=== PATIENT | male | born 1970 | race Caucasian/White ===

== ENCOUNTER 2019-08-22 14:22 | Outpatient (CLI) | payer BC, SELFPAY ==
--- NOTE | ~2019-08-22 | CT_ITS ---
EXAMINATION: CT chest w con EXAM DATE: 08/22/2019 14:53 INDICATION: Cough. TECHNIQUE: Spiral CT of the chest without contrast. Axial, coronal and sagittal images were reviewe d. Coronal maximum intensity pixel images of chest reviewed. The dose-length product (DLP) for this examination was 491.54 mGy-cm. The exposure was tailored according to patient size (auto mA exposur e control), and iterative reconstruction (ASIR) was used as additional dose reduction technique. The re is no prior study for comparison. FINDINGS: The lungs are clear. There are no pleural or pericardial effusions. Tracheobronchial t ree is patent. There is no mediastinal, hilar or axillary lymphadenopathy. There is no pneumothor ax. Heart normal in size. No evidence of coronary arterial calcification. Small paraesophageal fa t-containing hernia. There are cholecystectomy clips. Upper abdomen is unremarkable. There is mild thoracic spondylosis without osteoblastic or osteolytic lesions identified. IMPRESSION: 1. Small paraesophageal fat-containing hiatal hernia. 2. Otherwise unremarkable CT chest examination. Reviewed, dictated and finalized at location A. 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
== END 2019-08-22 14:23 | disposition home or self-care (01) ==
LOC: ANHIMG 14:25
PROVIDERS: PCP Family Medicine; Visit Provider Nurse Practitioner Family
DX: R05 Cough (principal); K44.9 Diaphragmatic hernia without obstruction or gangrene
CPT/HCPCS: 71260; Q9967

== ENCOUNTER 2021-06-27 10:55 | Emergency (ER) | payer BC, SELFPAY ==
--- NOTE | ~2021-06-27 | XR_ITS ---
EXAMINATION: XR chest 2V DATE: 06/27/2021 12:08 INDICATION: Cough and fever TECHNIQUE: Frontal and lateral views of the chest are obtained COMPARISON: 07/23/2019 FINDINGS: There are airspace opacities of the lower lung zones. There is no pleural effusion or pneum othorax. The cardiomediastinal silhouette is normal. There is mild thoracic spondylosis. Surgical cli ps in the right upper quadrant are likely from prior cholecystectomy. IMPRESSION: 1. Airspace opacities of the lung bases, consistent with atelectasis versus pneumonia. Reviewed, dictated and finalized at location A. T ORDER SELECTOR IMPRESSION: 1. Airspace opacities of the lung bases, consistent with atelectasis versus pne umonia.
[2021-06-27 11:20] VITALS: BP 150/109; PULSE 122; RESP 24; TEMP 34.9; O2SAT 93
--- NOTE | 2021-06-27 11:49 | ED.URI ---
HPI - URI/Sore Throat General Chief Complaint: Upper Respiratory Infection Stated Complaint: sob,cough Time Seen by Provider: 06/27/21 11:45 Source: patient and RN notes reviewed Mode of arrival: ambulatory Limitations: no limitations History of Present Illness HPI Narrative: Leander is a 50-year-old male patient who ambulated into the [facility] today. Patient states he has a productive cough, feeling sweaty, and short of breath since , 06/24/2021. Patient has a history of childhood asthma and pneumonia in 2019. Patient denies using albuterol currently. Patient states he has not been around anyone who is sick. Related Data Allergies Allergy/AdvReac Type Severity Reaction Status Date / Time No Known Allergies Allergy Verified 06/27/21 11:29 Review of Systems Review of Systems: CONSTITUTIONAL: Denies body aches, fever, chills, or sweats. EYES: Denies visual changes, redness, or discharge. ENT: Denies rhinorrhea,+ congestion,+ sore throat, or otalgia. CARDIOVASCULAR: Denies chest pain, palpitations, or edema. RESPIRATORY: + cough or dyspnea. GASTROINTESTINAL: Denies abdominal pain, nausea, vomiting, or diarrhea. GENITOURINARY: Denies dysuria or hematuria. SKIN: Denies rash, itching, or wounds. MUSCULOSKELETAL: Denies back pain, joint pain, or myalgia. NEUROLOGIC: Denies headache, numbness, tingling, or weakness. PSYCH: Denies depression or anxiety. All systems reviewed & are unremarkable except as noted in HPI and below PMFSH Family History Family History Grandparent Hypertension Carcinoma of colon Mother Family history of diabetes mellitus in first degree relative Sibling Family history of malignant neoplasm of ovary Social History Social History Smoking status: Never smoker Alcohol intake: current Comments At time of signature, I have reviewed and agree with nursing past medical, surgical, social and family history unless otherwise noted. Please see nursing chart for further information. There is no relevant family history pertinent to the presenting complaint Exam Narrative: GENERAL: Well-appearing, well-nourished, and in no acute distress. HEAD: Normocephalic, atraumatic. EYES: EOMI. No redness or drainage. Conjunctivae normal. ENT: Mucous membranes pink and moist. Nares clear. No rhinorrhea. TMs normal bilaterally. Posterior pharynx erythemic without exudate and minimal drainage Uvula midline. NECK: Normal AROM. Supple. No lymphadenopathy. CHEST: No respiratory distress. Crackles to the right base; harsh hacking cough noted . ABDOMEN: Soft, nontender, nondistended, normal active bowel sounds. MUSCULOSKELETAL: No bony tenderness. EXTREMITIES: Normal range of motion. No edema. SKIN: Warm, moist, no rash. Capillary refill normal. Normal skin turgor. NEURO: No focal deficits. Alert and oriented x3. Gait steady. PSYCH: Normal affect. No signs of depression or anxiety. Course Vital Signs Vital signs: Vital Signs Temperature 34.9 C L 06/27/21 11:20 Pulse Rate 122 H 06/27/21 11:20 Respiratory Rate 24 H 06/27/21 11:20 Blood Pressure 150/109 H 06/27/21 11:20 Pulse Oximetry 93 06/27/21 11:20 Temperature 34.9 C L 06/27/21 11:20 Pulse Rate 122 H 06/27/21 11:20 Respiratory Rate 24 H 06/27/21 11:20 Blood Pressure 150/109 H 06/27/21 11:20 Pulse Oximetry 93 06/27/21 11:20 Reviewed. Pt has been instructed to follow up with his PCP regarding his elevated blood pressure today. MDM - URI/Sore Throat MDM Narrative Medical decision making narrative: Influenza a and B are negative. COVID-19 test is negative Differential Diagnosis Differential diagnosis: Likely upper respiratory infection, sinusitis, bronchitis and influenza Medical Records Attestation: I reviewed the patient's medical records. Lab Data Labs: Influenza A Screen
[2021-06-27 12:45] VITALS: PULSE 104
== END 2021-06-27 12:52 | disposition home or self-care (01) ==
PROVIDERS: Emergency Provider Nurse Practitioner Family; PCP Family Medicine
DX: J18.9 Pneumonia, unspecified organism (principal); Z20.822 Contact with and (suspected) exposure to COVID-19; Z98.52 Vasectomy status
CPT/HCPCS: 71046; 87426; 87804; 99213; C9803; G0463

== ENCOUNTER → 2021-07-12 11:16 | Outpatient (CLI) | payer BC, SELFPAY ==
--- NOTE | ~2021-07-12 | XR_ITS ---
EXAMINATION: XR chest 2V DATE: 07/12/2021 11:44 INDICATION: Pneumonia, unspecified organism. TECHNIQUE: Frontal and lateral views of the chest were obtained. COMPARISON: Chest 2 views 06/27/2021, chest CT 08/22/2019 FINDINGS: The chest demonstrates clear lungs without pneumonia, pleural effusion, or pneumothorax. Th e heart size is normal. There are changes of anterior fusion procedure in cervical spine. IMPRESSION: 1. No acute cardiopulmonary disease. Reviewed, dictated and finalized at location A. 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
== END ==
PROVIDERS: PCP Family Medicine; Visit Provider Nurse Practitioner Family
DX: J18.9 Pneumonia, unspecified organism (principal)
CPT/HCPCS: 71046

== ENCOUNTER → 2022-12-02 09:17 | Outpatient (CLI) | payer BC, SELFPAY ==
--- NOTE | ~2022-12-02 | US_ITS ---
US abdomen complete EXAMINATION: US Abdomen Complete INDICATION: Right mid abdomen pain PROCEDURE: Realtime High Resolution abdomen ultrasound. COMPARISON: No prior studies for comparison FINDINGS: Gallbladder is surgically absent. Common bile duct measures 4.5 mm. Liver echotexture is increased, consistent with fatty infiltration.. Pancreas within normal limits. Pancreatic tail is obscured by bowel gas. Spleen is unremarkeable. Renal echotexture is within norm al limits bilaterally without hydronephrosis, contour deforming mass or renal stone. Right kidney lucie sures 11.5 cm. Left kidney measures 11.7 cm. Visualized aspects of the aorta and IVC are within normal limits. Portal vein is patent. No sonograph ic Almodovar's sign indicated by the technologist. IMPRESSION: 1: Hepatic steatosis. Reviewed, dictated and finalized at location B. IMPRESSION: 1: Hepatic steatosis.
== END ==
PROVIDERS: PCP Family Medicine; Visit Provider Physician Assistant Medical
DX: R10.31 Right lower quadrant pain (principal); K76.0 Fatty (change of) liver, not elsewhere classified
CPT/HCPCS: 76700

== ENCOUNTER 2023-02-01 00:46 | Day surgery (SDC) | payer BC, SELFPAY ==
[2023-01-24 13:44] VITALS: BMI 35.1
[2023-02-01 06:16] VITALS: BP 122/87; PULSE 110; RESP 18; TEMP 36.3; O2SAT 96
[2023-02-01] MEDS: LACTATED RINGERS 1,000 ML 150 ML IV CONT (06:26)
--- NOTE | 2023-02-01 07:23 | P.PNAN_ITS ---
Anes - Initial Pre Proc Eval Procedure: Operation Date: 02/01/23 07:30 Proposed Procedures p Colonoscopy - Humza Almazan MD Date/Time: 02/01/23 07:23 Surgeon: Humza Almazan MD Pre Op Diagnosis: family hx colon ca Patient Data Age: 52 Gender: M Height: 1.75 m Weight: 105.4 kg Last Vital Signs Temp 97.4 F L 02/01/23 06:16 Pulse 110 H 02/01/23 06:16 Resp 18 02/01/23 06:16 BP 122/87 02/01/23 06:16 Pulse Ox 96 02/01/23 06:16 O2 Del Method Room Air 02/01/23 06:16 Allergies Allergy/AdvReac Type Severity Reaction Status Date / Time No Known Allergies Allergy Verified 02/01/23 06:15 Home Medications Medication Instructions Recorded Confirmed Type testosterone (AndroGel) 1 pump topical DAILY #75 grams 12/02/22 02/01/23 Rx cetirizine 10 mg tablet (Zyrtec) 10 mg PO DAILY 01/24/23 02/01/23 History Patient hx anesthesia problems: none Family hx anesthesia problems: none Results Review: All pre-operative results and documents have been reviewed as part of the pre- operative evaluation. [facility] Past Medical History Medical History Asthma BMI 35.0-35.9,adult BMI 36.0-36.9,adult Family History Family History Grandparent Hypertension Carcinoma of colon Mother Family history of diabetes mellitus in first degree relative Sibling Family history of malignant neoplasm of ovary Social History Social History Smoking status: Never smoker Alcohol intake: current Substance use type: does not use Living arrangements: with family Spiritual care concerns: No Anes - Eval Final PreProcedure Day of Procedure 02/01/23 07:23 Patient weight: obese Heart: regular rate and rhythm Lungs: clear to auscultation Airway: Mallampati scale class II Neurological: alert and oriented Last oral intake: >/= 8 hours ASA classification: II Emergent: no Anesthetic plan: proceed Anesthesia type and monitoring: general GIVS and standard monitoring Results Review: All pre-operative results and documents have been reviewed as part of the pre- operative evaluation. Informed Consent: The patient's anesthetic plan and its attendant risks and benefits were dis cussed with the patient/family/POA. Questions were solicited and answers provided to the satisfaction of the patient/family/POA.
--- NOTE | 2023-02-01 07:31 | PM.HPGS ---
History of Present Illness History of Present Illness Consent: Risks, benefits, and alternatives have been discussed and questions answered. Patient agrees to proceed with procedure. Chief complaint: family hx colon ca Narrative: Leander Ortega is a 52 year old male here for first screening colonoscopy Review of Systems Constitutional: Constitutional: Denies headache(s) and Denies weakness Eyes: Eyes: Denies blurry vision ENT: Reports Normal hearing present, Denies headache(s) and Denies neck pain Cardiovascular: Cardiovascular: Denies chest pain and Denies dyspnea Respiratory: Respiratory: Denies dyspnea Gastrointestinal: Gastrointestinal: Reports no additional gastrointestinal complaints Genitourinary: Genitourinary: Denies dysuria Musculoskeletal: Musculoskeletal: Denies neck pain Integumentary/Breasts: Skin/Breast: Denies dry skin Neurologic: Reports Normal hearing present, Denies headache(s) and Denies weakness Psychiatric: Psychiatric: Denies anxiety Endocrine: Endocrine: Denies change in body appearance Hematologic/Lymphatic: Hematologic/Lymphatic: Denies easy bleeding Allergic/Immunologic: Allergic/Immunologic: Denies urticaria PMFSH Past Medical History Medical History Asthma BMI 35.0-35.9,adult BMI 36.0-36.9,adult Family History Family History Grandparent Hypertension Carcinoma of colon Mother Family history of diabetes mellitus in first degree relative Sibling Family history of malignant neoplasm of ovary Social History Social History Smoking status: Never smoker Alcohol intake: current Substance use type: does not use Living arrangements: with family Spiritual care concerns: No Meds Home Medications and Allergies Home Medications Medication Instructions Recorded Confirmed Type testosterone (AndroGel) 1 pump topical DAILY #75 grams 12/02/22 02/01/23 Rx cetirizine 10 mg tablet (Zyrtec) 10 mg PO DAILY 01/24/23 02/01/23 History Allergies Allergy/AdvReac Type Severity Reaction Status Date / Time No Known Allergies Allergy Verified 02/01/23 06:15 Vital Signs Vital Signs - 24 hr 02/01/23 06:16 Temperature 97.4 F L Pulse Rate 110 H Respiratory Rate 18 Blood Pressure 122/87 Pulse Oximetry 96 Oxygen Delivery Room Air Exam Const: General: comfortable and no acute distress HENMT: Face/Nose/Sinus: Normal nares present Eyes: General: appearance normal, both eyes and all related structures Neck: Neck: no JVD Resp: Auscultation: clear to auscultation bilaterally Cardio: Rate: regular rate Rhythm: regular rhythm GI: Inspection: non-distended GI Palp: Yes Soft to palpation Skin: General skin exam: normal color Neuro: General: gait normal Speech: normal speech Extrem: General: normal to inspection Psych: Mental Status: mental status grossly normal Assessment and Plan Assessment and plan (1) Colon cancer screening: Code(s): Z12.11 - Encounter for screening for malignant neoplasm of colon Status: Acute Assessment and Plan: colonoscopy
[2023-02-01 07:47] VITALS: BP 116/78; PULSE 89; RESP 14; O2SAT 94
[2023-02-01 07:57] VITALS: BP 112/79; PULSE 83; RESP 19; O2SAT 97
[2023-02-01 08:07] VITALS: BP 118/87; PULSE 72; RESP 16; O2SAT 97
== END 2023-02-01 08:19 | disposition home or self-care (01) ==
PROVIDERS: PCP Family Medicine; Visit Provider Internal Medicine Gastroenterology
PROC: 0DJD8ZZ Inspection of Lower Intestinal Tract, Via Natural or Artificial Opening Endoscopic (ICD-10-PCS; CPT 45378; principal; 2023-02-01 07:30)
DX: Z12.11 Encounter for screening for malignant neoplasm of colon (principal); K64.8 Other hemorrhoids; Z80.0 Family history of malignant neoplasm of digestive organs; E66.9 Obesity, unspecified; Z68.34 Body mass index [BMI] 34.0-34.9, adult
CPT/HCPCS: 45378; J2704; J7120

== ENCOUNTER → 2023-02-24 14:47 | Outpatient (CLI) | payer BC, SELFPAY ==
--- NOTE | ~2023-02-24 | CT_ITS ---
EXAMINATION: CT abdomen pelvis w con INDICATION: Unspecified abdominal pain TECHNIQUE: Computed tomographic images of the abdomen and pelvis were obtained after the administrati on of 100 cc of Omnipaque 350 intravenous contrast. The dose-length product (DLP) was 1116.31 mGy-cm. Automated exposure control and iterative reconstruction technique were employed. COMPARISON: 08/07/2018 FINDINGS: Minimal dependent atelectasis is present in the lung bases. The heart size is normal. There are changes of cholecystectomy. A small hiatal hernia is present which contains fat. The liver, sple en, pancreas, and adrenal glands are normal. The kidneys are unremarkable. No pathologically enlarged abdominal or pelvic lymph nodes are identified. No free intraperitoneal gas or evidence of bowel obs truction. There are umbilical and left inguinal hernias containing fat. Colonic diverticulosis is pre sent without evidence of diverticulitis. Changes of appendectomy are noted. IMPRESSION: 1. No CT correlate for the patient's symptoms. Reviewed, dictated and finalized at location A.
== END ==
PROVIDERS: PCP Nurse Practitioner Family; Visit Provider Nurse Practitioner Family
DX: R10.9 Unspecified abdominal pain (principal); Z86.19 Personal history of other infectious and parasitic diseases; Z87.11 Personal history of peptic ulcer disease
CPT/HCPCS: 74177; Q9967

== ENCOUNTER 2023-05-03 08:22 | Outpatient (CLI) | payer BC, SELFPAY ==
--- NOTE | ~2023-05-03 | XR_ITS ---
EXAMINATION: XR small bowel follow through DATE: 05/03/2023 09:55 INDICATION: Abdominal pain TECHNIQUE: Planer Setup Operator radiograph(s) of the abdomen was/were obtained. Oral contrast was administered, and sequential radiographs of the abdomen were obtained until oral contrast was noted to be in the proxi mal colon. Spot fluoroscopic images of the small bowel were obtained. Fluoroscopy exposure time was 0 .6 minutes. A total of 11 fluoroscopic images and 5 overhead radiographs were obtained. Total DAP was 152.877 Gycm^2 COMPARISON: CT dated 02/24/2023 FINDINGS: Postoperative change at the tip the cecum on the fleece tier image consistent with prior appendectomy. Ther e are also cholecystectomy clips in right upper quadrant. Transit time from the stomach to proximal c olon was approximately 30 minutes. There is normal caliber and mucosal fold pattern throughout the sm all bowel. Terminal ileum is normal. No tethering or abnormal mass effect observed upon the small b owel with real-time fluoroscopy. IMPRESSION: 1. Normal small bowel follow-through. Reviewed, dictated and finalized at location A.
== END 2023-05-03 08:23 | disposition home or self-care (01) ==
PROVIDERS: PCP Nurse Practitioner Family; Visit Provider Internal Medicine Gastroenterology
DX: R10.9 Unspecified abdominal pain (principal)
CPT/HCPCS: 74250

== ENCOUNTER 2023-05-16 01:05 | Day surgery (SDC) | payer BC, SELFPAY ==
[2023-05-04 12:30] VITALS: BMI 34.8
[2023-05-16 12:28] VITALS: BP 134/90; PULSE 77; RESP 18; TEMP 36.2; O2SAT 97
[2023-05-16] MEDS: LACTATED RINGERS 1,000 ML 150 ML IV CONT (12:38)
--- NOTE | 2023-05-16 13:09 | WPDANESEPPF ---
Anes - Initial Pre Proc Eval Procedure: Operation Date: 05/16/23 14:00 Proposed Procedures p Esophagogastroduodenoscopy - Humza Almazan MD Date/Time: 05/16/23 13:09 Surgeon: Humza Almazan MD Pre Op Diagnosis: Unspecified Abdominal Pain Patient Data Age: 52 Gender: M Height: 1.75 m Weight: 106.5 kg Last Vital Signs Temp 97.2 F L 05/16/23 12:28 Pulse 77 05/16/23 12:28 Resp 18 05/16/23 12:28 BP 134/90 05/16/23 12:28 Pulse Ox 97 05/16/23 12:28 O2 Del Method Room Air 05/16/23 12:28 Allergies Allergy/AdvReac Type Severity Reaction Status Date / Time No Known Allergies Allergy Verified 05/16/23 12:27 Home Medications Medication Instructions Recorded Confirmed Type cetirizine 10 mg tablet (Zyrtec) 10 mg PO DAILY 01/24/23 05/04/23 History dicyclomine 10 mg capsule 10 mg PO BID PRN abdominal pain 04/27/23 05/04/23 Rx #60 caps Patient hx anesthesia problems: none Family hx anesthesia problems: none Results Review: All pre-operative results and documents have been reviewed as part of the pre-operative evaluation. [facility] Past Medical History Medical History Asthma BMI 35.0-35.9,adult BMI 36.0-36.9,adult Cholecystectomy planned Vasectomy planned Surgical History Surgical History (Updated 04/27/23 @ 14:32 by Humza Almazan MD) H/O colonoscopy H/O spinal fusion History of appendectomy History of cholecystectomy Family History Family History Grandparent Hypertension Carcinoma of colon Mother Family history of diabetes mellitus in first degree relative Diabetes mellitus Sibling Family history of malignant neoplasm of ovary Father No problems noted. 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 Informed Consent: The patient's anesthetic plan and its attendant risks and benefits were discussed with the patient/family/POA. Questions were solicited and answers provided to the satisfaction of the patient/family/POA.
--- NOTE | 2023-05-16 14:25 | WPDHPUPDATE1 ---
History and Physical Update Update Date/Time: 05/16/23 14:25 History and Physical has been reviewed, including an updated exam of the patient. There are NO changes in the patient's condition. Risks, benefits, and alternatives have been discussed and questions answered. Patient agrees to proceed with procedure.
[2023-05-16 14:36] VITALS: BP 126/88; PULSE 72; RESP 15; O2SAT 96
[2023-05-16 14:46] VITALS: BP 127/86; PULSE 73; RESP 19; O2SAT 98
[2023-05-16 14:56] VITALS: BP 135/99; PULSE 65; RESP 17; O2SAT 98
== END 2023-05-16 15:03 | disposition home or self-care (01) ==
PROVIDERS: PCP Nurse Practitioner Family; Visit Provider Internal Medicine Gastroenterology
PROC: 0DJ08ZZ Inspection of Upper Intestinal Tract, Via Natural or Artificial Opening Endoscopic (ICD-10-PCS; CPT 43235; principal; 2023-05-16 14:00)
DX: K29.50 Unspecified chronic gastritis without bleeding (principal); J45.909 Unspecified asthma, uncomplicated; Z80.0 Family history of malignant neoplasm of digestive organs; Z80.41 Family history of malignant neoplasm of ovary; E66.9 Obesity, unspecified; Z68.34 Body mass index [BMI] 34.0-34.9, adult
CPT/HCPCS: 43239; 88305; J2704; J7120

== ENCOUNTER 2024-07-02 15:32 | Emergency (ER) | payer BC, SELFPAY ==
--- NOTE | ~2024-07-02 | CT_ITS ---
EXAMINATION: CT brain wo con DATE: 07/02/2024 18:44 INDICATION: New headache. TECHNIQUE: Computed tomography (CT) of the head was performed without intravenous contrast. The mA wa s adjusted according to patient size. Iterative reconstruction technique was employed. The dose-lengt h product was 681.00 mGy-cm. COMPARISON: Head CT 01/22/2014 FINDINGS: There is no intracranial hemorrhage, acute infarction, or abnormal intracranial mass lesion . The ventricles are normal in size. The orbits are normal. There is mild mucosal thickening in the p aranasal sinuses. The mastoid air cells are normal. IMPRESSION: 1. Normal brain. Reviewed, dictated and finalized at location A. [employer] SPECIALIST IMPRESSION: 1. Normal brain.
[2024-07-02 15:39] VITALS: BP 154/110; PULSE 100; RESP 17; TEMP 36.5; O2SAT 98
--- NOTE | 2024-07-02 16:39 | ED_ITS ---
HPI - Headache General Chief Complaint: Headache <Latanya Kirkpatrick APRN - Last Filed: 07/02/24 16:44> Stated Complaint: headache <Latanya Kirkpatrick APRN - Last Filed: 07/02/24 16:44> Time Seen by Provider: 07/02/24 16:30 <Latanya Kirkpatrick APRN - Last Filed: 07/02/24 16:44> Focused HPI: Patient is a 53-year-old male who presents to the ER with complaints of a migraine headache. He reports the started yesterday morning around 11:00 a.m. Patient went to work around 11:00 p.m. last night and had to leave around midnight because the pain was so bad. He endorses vomiting and reports he tried to sleep it off, but had no relief when he woke up this morning. Patient denies any medical history related to this ER visit. GENERAL: Well-appearing, well-nourished, and in no acute distress. HEAD: Normocephalic, atraumatic. CHEST: Clear to auscultation. ?No respiratory distress. HEART: Regular rate and rhythm.? NEURO: ?Alert and oriented x3. Patient screened in triage and initial orders placed.? ?Additional care and disposition to be based upon?diagnostic testing and treatment. <Latanya Kirkpatrick APRN - Last Filed: 07/02/24 16:44> Source: patient <Cory Pacheco PA-C - Last Filed: 07/03/24 01:28> Mode of arrival: ambulatory <Cory Pacheco PA-C - Last Filed: 07/03/24 01:28> Limitations: no limitations <MONIK Cook Last Filed: 07/03/24 01:28> History of Present Illness HPI Narrative: Agree with triage note above. Patient states that he has had history of migraines 15 years ago but was able to be weaned off migraine medications by his neurologist. He does feel that today's episode is similar to past migraines with pain in the base of the occiput and pain around the eyes. Does report photophobia. Denies fevers, chills, neck stiffness, recent illness. Denies numbness or weakness. Has only had 1 episode of vomiting. <Cory Pacheco PA-C - Last Filed: 07/03/24 01:28> Related Data Home Medications: Home Medications ?Medication ?Instructions ?Recorded ?Confirmed ?Last Taken ?Type cetirizine 10 mg tablet (Zyrtec) 10 mg PO DAILY 01/24/23 05/04/23 05/15/23 History <Latanya Kirkpatrick APRN - Last Filed: 07/02/24 16:44> Allergies/Adverse Reactions: Allergies Allergy/AdvReac Type Severity Reaction Status Date / Time No Known Allergies Allergy Verified 11/22/23 13:42 <Latanya Kirkpatrick APRN - Last Filed: 07/02/24 16:44> Review of Systems Review of Systems: All systems as dictated in HPI <Cory Pacheco PA-C - Last Filed: 07/03/24 01:28> [facility] Past Medical History Medical History: Medical History Asthma BMI 35.0-35.9,adult BMI 36.0-36.9,adult Cholecystectomy planned Vasectomy planned <Latanya Kirkpatrick APRN - Last Filed: 07/02/24 16:44> Surgical History Surgical History: Surgical History H/O colonoscopy H/O spinal fusion History of appendectomy History of cholecystectomy <Latanya Kirkpatrick APRN - Last Filed: 07/02/24 16:44> Family History Family History: Family History Grandparent Hypertension Carcinoma of colon Mother Family history of diabetes mellitus in first degree relative Diabetes mellitus Sibling Family history of malignant neoplasm of ovary Father No problems noted. <Latanya Kirkpatrick APRN - Last Filed: 07/02/24 16:44> Social History Social History: Social History Smoking status: Never smoker Second hand tobacco smoke exposure: Yes Alcohol intake: never Substance use: never Substance use type: does not use Lack of Transportation: No Lack of Food: Never True Current Housing: I Have Housing Concerned About Future Housing: No Difficulty Paying Gas/Electric Bills: No Difficulty Paying for Meds: No Currently Unemployed: No Education: High School Diploma/GED Difficulty w/ Childcare or Family Care: No Living arrangements: alone Occupation/Education: occupation 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 HEAD: Normocephalic, atraumatic. EYES: PERRLA and EOMI. Photophobia present. ENT: Nares clear, no rhinorrhea or epistaxis. Mucous membranes moist. Oropharynx without tonsillar hypertrophy exudate or other lesions. NECK: Supple. No adenopathy or masses. CHEST: No respiratory distress. Clear to auscultation. No wheezes rales or r honchi HEART: Regular rate and rhythm. No murmur heard. Normal peripheral pulses. ABDOMEN: Soft, nontender, nondistended, normal active bowel sounds. MSK: Normal range of motion. No edema. SKIN: Warm, dry, no rash. NEURO: Alert and oriented x4. No focal deficits. PSYCH: Normal mood and affect. <Cory Pacheco PA-C - Last Filed: 07/03/24 01:28> Course Reevaluation(s) Reevaluation #1: Feeling improved after migraine cocktail. Ready to go home. <Cory Pacheco PA-C - Last Filed: 07/03/24 01:28> Date: 07/02/24 <Cory Pacheco PA-C - Last Filed: 07/03/24 01:28> Time: 19:17 <MONIK Cook Last Filed: 07/03/24 01:28> Vital Signs Vital signs: Vital Signs Temperature 97.7 F 07/02/24 15:39 Pulse Rate 100 07/02/24 15:39 Respiratory Rate 17 07/02/24 15:39 Blood Pressure 154/110 H 07/02/24 15:39 Pulse Oximetry 98 07/02/24 15:39 Oxygen Delivery Room Air 07/02/24 15:39 Temperature 97.7 F 07/02/24 15:39 Pulse Rate 72 07/02/24 19:48 Respiratory Rate 14 07/02/24 19:48 Blood Pressure 154/110 H 07/02/24 15:39 Pulse Oximetry 100 07/02/24 19:48 Oxygen Delivery Room Air 07/02/24 15:39 <Latanya Kirkpatrick, [employer] EN[employer] - Last Filed: 07/02/24 16:44> Vital Signs Temperature 97.7 F 07/02/24 15:39 Pulse Rate 100 07/02/24 15:39 Respiratory Rate 17 07/02/24 15:39 Blood Pressure 154/110 H 07/02/24 15:39 Pulse Oximetry 98 07/02/24 15:39 Oxygen Delivery Room Air 07/02/24 15:39 Temperature 97.7 F 07/02/24 15:39 Pulse Rate 72 07/02/24 19:48 Respiratory Rate 14 07/02/24 19:48 Blood Pressure 154/110 H 07/02/24 15:39 Pulse Oximetry 100 07/02/24 19:48 Oxygen Delivery Room Air 07/02/24 15:39 <Cory Pacheco PA-C - Last Filed: 07/03/24 01:28> MDM - Headache MDM Narrative Medical decision making narrative: This is a 53-year-old male with history of migraines who presents to the ED for a migraine. Vitals are showing mildly elevated blood pressure but otherwise normal. Exam is unremarkable other than photophobia is present. Neurologically fully intact. No indication for lab work today. Low suspicion for infection causing this headache. It seems to be consistent with previous migraines. CT brain was ordered to rule out mass or bleed. CT brain is without acute findings. Patient was given migraine cocktail per triage orders and is feeling improved after this. Presentation consistent with migraine Patient will be discharged in stable condition. Supportive measures discussed and return precautions given. Patient is understanding and agreeable with plan for discharge with PCP follow-up. <MONIK Cook Last Filed: 07/03/24 01:28> Differential Diagnosis Differential diagnosis: Likely migraine, tension headache, subarachnoid hemorrhage, headache, m eningitis and sinusitis <MONIK Cook Last Filed: 07/03/24 01:28> Discharge Plan Discharge Clinical Impression: Migraine <Latanya Kirkpatrick APRN - Last Filed: 07/02/24 16:44> Patient Disposition: Home, Self-Care <Latanya Kirkpatrick APRN - Last Filed: 07/02/24 16:44> Condition: Stable <Latanya Kirkpatrick APRN - Last Filed: 07/02/24 16:44> Instructions: Antibiotic Form <Latanya Kirkpatrick APRN - Last Filed: 07/02/24 16:44> Additional Instructions: Your seen in the ED today for headache. It would appear consistent with a migraine. Brain imaging is clear. Please take both Tylenol and ibuprofen at the new onset of any further headache. Follow-up with PCP and neurologist. If you have any new or worsening symptoms please return to the ER for further evaluation. <Latanya Kirkpatrick APRN - Last Filed: 07/02/24 16:44> Patient Language: Tajik <Latanya Kirkpatrick APRN - Last Filed: 07/02/24 16:44> Prescriptions: No Action cetirizine [Zyrtec] 10 mg Tablet 10 mg PO DAILY <Latanya Kirkpatrick APRN - Last Filed: 07/02/24 16:44> Follow-up/Referrals: Lucy Wells, [employer] [Primary Care Provider] - <Latanya Kirkpatrick APRN - Last Filed: 07/02/24 16:44> Time of Disposition: 18:59 <Latanya Kirkpatrick APRN - Last Filed: 07/02/24 16:44> 18:59 <Cory Pacheco PA-C - Last Filed: 07/03/24 01:28>
[2024-07-02] MEDS: KETOROLAC (*BKC) 60 MG/2 ML VIAL IM (18:20)
[2024-07-02] MEDS: dexAMETHasone SOD PHOS INJ 10 MG/ML 1 ML VIAL IM (18:20)
[2024-07-02] MEDS: METOCLOPRAMIDE HCL INJ 10 MG/2 ML VIAL IM (18:20)
[2024-07-02 19:48] VITALS: PULSE 72; RESP 14; O2SAT 100
== END 2024-07-02 19:50 | disposition home or self-care (01) ==
PROVIDERS: Emergency Provider Physician Assistant; PCP Nurse Practitioner Family
DX: G43.909 Migraine, unspecified, not intractable, without status migrainosus (principal); J45.909 Unspecified asthma, uncomplicated; Z90.49 Acquired absence of other specified parts of digestive tract; Z98.1 Arthrodesis status
CPT/HCPCS: 70450; 96372; 96374; 96375; 99284; J1100; J1885; J2765